=== PATIENT | male | born 1985 | race Caucasian/White ===

== ENCOUNTER 2021-04-02 15:33 | Emergency (ER) | payer OTHER ==
[~2021-04-02] VITALS: Ht 172.7 cm; Wt 74.8 kg
[2021-04-02 15:47] VITALS: BP 130/73
[2021-04-02] MEDS ORDERED: IBUPROFEN 400 MG TABLET ONE (16:09)
[2021-04-02] MEDS ORDERED: IBUPROFEN 400 MG TABLET PO ONE (16:30)
[2021-04-02] MEDS ORDERED: AZIT250T PO (16:55)
[2021-04-02] MEDS ORDERED: BENZ-13 PO (16:55)
== END 2021-04-02 17:06 | disposition home or self-care (01) ==
LOC: ER 15:45
DX: U07.1 COVID-19 (principal); R91.8 Other nonspecific abnormal finding of lung field; R51.9 Headache, unspecified
CPT/HCPCS: 71045; 87426; 99284; C9803

== ENCOUNTER 2024-02-28 13:55 | Emergency (ER) | payer OTHER ==
[~2024-02-28] VITALS: Ht 177.8 cm; Wt 74.8 kg
[~2024-02-28 13:55] MED LIST: AZIT250T PO; BENZ-13 PO
[2024-02-28 14:16] VITALS: BP 149/82; TEMP 98.3; O2SAT 100
[2024-02-28] MEDS ORDERED: BUTA1CAP46 PO (15:05)
[2024-02-28] MEDS ORDERED: FLUT16SP16 BNOSTRILS (15:05)
== END 2024-02-28 15:33 | disposition home or self-care (01) ==
LOC: ER 13:59
DX: R51.9 Headache, unspecified (principal); G51.0 Bell's palsy; F17.200 Nicotine dependence, unspecified, uncomplicated